=== PATIENT | male | born 1985 | race Caucasian/White ===

== ENCOUNTER 2017-03-06 13:11 | Emergency (ER) | payer OTHER ==
--- NOTE | 2017-03-26 21:26 | ER ---
ADMIT: 03/06/2017 RM/LOC: ER [facility] MR#: [id number] [facility]-[address] [id number] THERESA WESTON [address] [address] Emergency Room Report SEX: M AGE: 31 : 1985 DATE: 03/06/2017 A 31-year-old gentleman, who is incarcerated in the local senior care, apparently had a seizure today. He states he has had seizures in the past, but he would not say whether it is associated with alcohol or drug abuse. He does admit to drinking heavily. He was drinking heavily last night prior to his incarceration. He has no signs of trauma. He was complaining of a headache currently. A CT scan of the head was negative. His prolactin level was elevated at 37.5. I elected to start him on Keppra and asked that he be seen this week by Neurology. DIAGNOSIS: Seizure. Moises Sesay MD/ kathryn JOB #: [id number] CC: Watson Ochoa MD, Attending Physician Tate Howell MD, Family Physician
== END 2017-03-06 15:15 | disposition home or self-care (01) ==
LOC: ER 13:11
DX: R56.9 Unspecified convulsions (principal); F17.210 Nicotine dependence, cigarettes, uncomplicated